=== PATIENT | male | born 1995 | race Two or more races ===

== ENCOUNTER 2019-09-25 06:17 | Emergency (ER) | payer BC ==
[~2019-09-25] VITALS: Ht 172.7 cm; Wt 63.5 kg
== END 2019-09-25 10:41 | disposition home or self-care (01) ==
LOC: ER 06:17
DX: S05.12XA Contusion of eyeball and orbital tissues, left eye, initial encounter (principal); Y08.89XA Assault by other specified means, initial encounter; Y93.89 Activity, other specified; Y92.89 Other specified places as the place of occurrence of the external cause; Y99.8 Other external cause status